=== PATIENT | female | born 1985 | race Caucasian/White ===

== ENCOUNTER 2017-07-24 16:35 | Inpatient (IN) | payer MEDICAID ==
[~2017-07-24] VITALS: Ht 177.8 cm; Wt 78.5 kg
[2017-07-24 16:43] VITALS: BP 122/69
[2017-07-24 17:02] LABS: BASO # 0.1 10*3/uL (0.0-0.1); BASO % 0.8 % (0.0-1.0); EOS # 0.1 10*3/uL (0.0-0.4); EOS % 1.1 % (1.0-4.0); HEMATOCRIT 40.6 % (37.0-47.0); HEMOGLOBIN 13.4 g/dl (12.0-16.0); LYMPH # 2.4 10*3/uL (1.3-4.4); LYMPH % 37.1 % (27.0-41.0); MEAN CELL VOLUME 79.3 fl (81.0-99.0); MEAN CORPUSCULAR HGB 26.2 pg (27.0-31.0); MEAN PLATELET VOLUME 8.6 fl (9.6-12.3); MONO # 0.3 10*3/uL (0.1-1.0); MONO % 4.9 % (3.0-9.0); NEUT # 3.7 10*3/uL (2.3-7.9); NEUT % 55.9 % (47.0-73.0); PLATELET COUNT AUTOMATED 528 10*3/uL (130-400); RED BLOOD COUNT 5.12 10*6/uL (4.10-5.10); RED CELL DISTRI WIDTH 13.4 % (0-14.5); WHITE BLOOD COUNT 6.6 10*3/uL (4.8-10.8)
[2017-07-24 17:16] LABS: ALBUMIN 4.1 gm/dl (3.1-4.5); ALKALINE PHOSPHATASE 95 U/L (45-117); BUN 7 mg/dl (7-24); CHLORIDE 104 mmol/L (98-107); CREATININE 0.99 mg/dL (0.55-1.02); SGOT/AST 19 IU/L (3-35); SGPT/ALT 28 U/L (12-78); SODIUM 140 mmol/L (136-145)
[2017-07-24 17:19] LABS: ACETAMINOPHEN (TYLENOL) < 2.0 ug/ml (10-30); BETA-HCG, QUANT < 1.0 mIU/mL (1-3); ETHYL ALCOHOL < 3.0 mg/dl (<3)
[2017-07-24 17:20] LABS: LIPASE 174 U/L (73-393)
[2017-07-24 17:35] LABS: BILIRUBIN 1+ (NEGATIVE); BLOOD NEGATIVE (NEGATIVE); CLARITY CLOUDY (CLEAR); COLOR YELLOW (YELLOW); GLUCOSE NEGATIVE (NEGATIVE); KETONE NEGATIVE (NEGATIVE); LEUKO ESTERASE 1+ (NEGATIVE); NITRITE NEGATIVE (NEGATIVE); UROBILINOGEN 0.2 E.U./dl (0.2-1.0)
[2017-07-24 17:43] LABS: RBC 0-2 rbc/hpf (0-2)
[2017-07-24 17:44] LABS: BACTERIA 1+
[2017-07-24 17:45] LABS: URINE AMPHETAMINES < 1000 (1000ng/ml); URINE BARBITURATES < 200 (200ng/ml); URINE BENZODIAZEPINES < 200 (200ng/ml); URINE CANNABINOIDS (THC) < 50 (50ng/ml); URINE COCAINE < 300 (300ng/ml); URINE METHADONE < 300 (300ng/ml); URINE OPIATES > 300 (300ng/ml)
[2017-07-24 17:47] LABS: URINE PHENCYCLIDINE < 25 (25ng/ml)
[2017-07-24 18:03] VITALS: BP 115/72
--- NOTE | 2017-07-24 18:49 | NUR ---
PATIENT ARRIVED TO FLOOR AT 18:03 FROM ER A NV PATIENT. PATIENT USES 1 TO 2 GRAMS DAILY. PATIENT WAS ORIENTED TO FLOOR AND AWARE OF [place] POLICY
[2017-07-24 20:15] VITALS: BP 115/72
[2017-07-25] VITALS: BP 112/70
[2017-07-25 08:00] VITALS: BP 104/66
--- NOTE | 2017-07-25 08:00 | NUR ---
PATIENT RESTING IN BED. ADMITS TO SOME BODY ACHES BUT IS REFUSING MEDICATION AT THIS TIME. BED IS IN LOW POSITION. CALL LIGHT IS WITHIN REACH.
--- NOTE | 2017-07-25 09:55 | NUR ---
Shift chart check completed.
[2017-07-25 12:00] VITALS: BP 106/68
[2017-07-25 16:00] VITALS: BP 108/62
--- NOTE | 2017-07-25 17:09 | NUR ---
Patient reports the following symptoms of withdrawal: RESTLESS LEG AND LEG CRAMPING. Patient given scheduled/PRN medication to control withdrawal symptoms ROBAXIN AND REQUIP. Close observation will be maintained.
[2017-07-26] VITALS: BP 100/62
--- NOTE | 2017-07-26 02:05 | NUR ---
MEDICATE WITH DESYREL AND ROBAXIN PER PRN ORDER FOR C/O S/S OF WITHDRAWL.
[2017-07-26 08:00] VITALS: BP 92/60
--- NOTE | 2017-07-26 08:00 | NUR ---
Patient resting. Responding to scheduled medications with fewer complaints of pain and anxiety.
--- NOTE | 2017-07-26 09:43 | NUR ---
Patient reports the following symptoms of withdrawal: body aches, leg pain, anxiety and cocaine cravings. Patient given scheduled/PRN medication to control withdrawal symptoms. Close observation will be maintained.
--- NOTE | 2017-07-26 10:45 | NUR ---
Patient resting. Responding to scheduled medications with fewer complaints of pain and anxiety.
[2017-07-26 16:00] VITALS: BP 106/66
--- NOTE | 2017-07-26 21:15 | NUR ---
MEDICATED WITH ROBAXIN, DESYREL, AND VISTARIL PER PRN ORDERS FOR C/O WITHDRAWL.
[2017-07-27] VITALS: BP 90/53
--- NOTE | 2017-07-27 | NUR ---
ROBAXIN, DESYREL, AND VISTARIL EFFECTIVE FOR S/S OF WITHDRAWL.
[2017-07-27 06:29] LABS: BASO # 0.1 10*3/uL (0.0-0.1); BASO % 1.2 % (0.0-1.0); EOS # 0.2 10*3/uL (0.0-0.4); HEMATOCRIT 39.7 % (37.0-47.0); HEMOGLOBIN 12.7 g/dl (12.0-16.0); LYMPH # 4.6 10*3/uL (1.3-4.4); LYMPH % 59.8 % (27.0-41.0); MEAN CELL VOLUME 80.5 fl (81.0-99.0); MEAN CORPUSCULAR HGB 25.8 pg (27.0-31.0); MEAN PLATELET VOLUME 8.7 fl (9.6-12.3); MONO # 0.5 10*3/uL (0.1-1.0); MONO % 6.8 % (3.0-9.0); NEUT # 2.3 10*3/uL (2.3-7.9); NEUT % 30.1 % (47.0-73.0); PLATELET COUNT AUTOMATED 433 10*3/uL (130-400); RED BLOOD COUNT 4.93 10*6/uL (4.10-5.10); RED CELL DISTRI WIDTH 13.4 % (0-14.5); WHITE BLOOD COUNT 7.7 10*3/uL (4.8-10.8)
[2017-07-27 06:35] LABS: CREATININE 0.88 mg/dL (0.55-1.02)
[2017-07-27 08:00] VITALS: BP 100/68
--- NOTE | 2017-07-27 08:15 | NUR ---
PATIENT UP TO THE SIDE OF THE BED. NO DISTRESS.
--- NOTE | 2017-07-27 10:00 | NUR ---
AM MEDS TAKEN.
--- NOTE | 2017-07-27 10:03 | NUR ---
MEDICATED WITH REQUIP FOR RESTLESS LEGS AND ROBAXIN FOR LEG CRAMPS.
--- NOTE | 2017-07-27 11:00 | NUR ---
Patient resting. Responding to scheduled medications with fewer complaints of pain and anxiety.
[2017-07-27] MEDS ORDERED: ZOFRAN 4 MG ED2 TAB PO (11:09)
[2017-07-27] MEDS ORDERED: ATARAX,VISTARIL50 MG PO (11:09)
--- NOTE | 2017-07-27 15:30 | NUR ---
Patient discharged in stable condition, referral letter provided to patient with specific instructions and appointment for ongoing treatment. Patient verbalizes understanding of discharge plan.
== END 2017-07-27 15:30 | disposition home or self-care (01) | DRG 897 ==
LOC: ED 16:35 → EDHOLD 16:50 → 5E 16:50
PROVIDERS: Internal Medicine; Student in an Organized Health Care Education/Training Program; ADMIT Emergency Medicine
DX: F11.23 Opioid dependence with withdrawal (principal); M79.1 Myalgia; Z22.322 Carrier or suspected carrier of Methicillin resistant Staphylococcus aureus; Z82.49 Family history of ischemic heart disease and other diseases of the circulatory system; Z80.3 Family history of malignant neoplasm of breast